=== PATIENT | female | born 1960 | race Caucasian/White ===

== ENCOUNTER 2018-10-27 01:09 | Emergency (ER) | payer OTHER ==
[~2018-10-27] VITALS: Ht 167.6 cm; Wt 79.4 kg
[2018-10-27 01:18] VITALS: BP 122/78
--- NOTE | 2018-10-27 01:18 | NUR ---
57 Y/O FEMALE PRESENTS TO ED WITH C/O NEED FOR MEDICATION REFILL FOR LEVOTHYROXINE 25MCG AND HAS CHRONIC BACK PAIN. 10/10 SEVERE PAIN. PT HAS HX OF HYPOTHYROID, CHROINIC BACK PAIN, AND LUPUS. AMBULATED TO BED 11 WITH WALKER. STRONG AND STEADY GAIT. VSS. POSITIONED IN BED FOR COMFORT. ER MD AWARE. CONTINUE TO MONITOR.
--- NOTE | 2018-10-27 01:18 | NUR ---
PT TAKEN TO BED 11
[2018-10-27] MEDS: KETOROLAC 60 MG/2 ML VIAL IM ONE (01:42)
[2018-10-27 02:40] VITALS: BP 122/78
--- NOTE | 2018-10-27 02:40 | NUR ---
Patient discharged with v/s stable. Written and verbal after care instructions given and explained. Patient alert, oriented and verbalized understanding of instructions. Ambulatory with steady gait. All questions addressed prior to discharge. ID band removed. Patient advised to follow up with PMD. Rx of LEVOTHYROXINE, KETOCONAZOLE, VENTOLIN, NORCO given. Patient educated on indication of medication including possible reaction and side effects. Opportunity to ask questions provided and answered.
== END 2018-10-27 02:40 | disposition home or self-care (01) ==
LOC: MED 01:09
DX: M54.5 Low back pain (principal); G89.29 Other chronic pain; B86 Scabies; Z76.0 Encounter for issue of repeat prescription; F17.210 Nicotine dependence, cigarettes, uncomplicated; Z86.39 Personal history of other endocrine, nutritional and metabolic disease; Z86.79 Personal history of other diseases of the circulatory system; Z90.710 Acquired absence of both cervix and uterus; Z98.890 Other specified postprocedural states; Z96.659 Presence of unspecified artificial knee joint; Z88.2 Allergy status to sulfonamides
CPT/HCPCS: 96372; 99283; J1885